=== PATIENT | female | born 1995 | race Caucasian/White ===

== ENCOUNTER 2020-05-02 14:47 | Emergency (ER) | payer OTHER, SELFPAY ==
[2020-05-02 15:42] VITALS: BP 137/87; PULSE 90; RESP 18; TEMP 36.6; O2SAT 97; BMI 25.6
[2020-05-02 16:46] VITALS: BP 135/93; PULSE 62; RESP 15; TEMP 36.6; O2SAT 96
[2020-05-02] MEDS: 0.9 % Sodium Chloride 1,000 ML 999 ML IVCONT (17:02)
--- NOTE | 2020-05-02 17:03 | ED_ITS ---
HPI - Nausea/Vomiting/Diarrhea General Chief complaint: Nausea/Vomiting/Diarrhea <TAYLOR Shipman Last Filed: 05/02/20 17:48> Stated complaint: nausea, vomiting, unable to eat <TAYLOR Shipman Last Filed: 05/02/20 17:48> Time Seen by Provider: 05/02/20 16:37 <TAYLOR Shipman Last Filed: 05/02/20 17:48> Source: patient <TAYLOR Shipman Last Filed: 05/02/20 17:48> Mode of arrival: ambulatory <TAYLOR Shipman Last Filed: 05/02/20 17:48> Limitations: no limitations <TAYLOR Shipman Last Filed: 05/02/20 17:48> History of Present Illness HPI Narrative: 25 y/o female with history of tubal ligation, UTI presents with 3 days of nausea and vomiting. She last ate yesterday and has not been able to tolerate much. She denies sick contacts, recent travel or recent antibiotcs. She has no abdominal pain, fever, chills. She has a history of similar presentation in the past when she had UTI. <TAYLOR Shipman Last Filed: 05/02/20 17:48> MD elicited complaint: nausea and vomiting <TAYLOR Shipman Last Filed: 05/02/20 17:48> Related Data Home medications: Previous Rx's Medication Instructions Recorded diphenhydramine HCl [Benadryl] 25 mg PO Q6H PRN #10 cap 05/02/20 metoclopramide HCl [Reglan] 10 mg PO Q6H PRN #10 tab 05/02/20 ondansetron 4 mg PO Q6-8H PRN #14 tab 05/02/20 <TAYLOR Shipman Last Filed: 05/02/20 17:48> Allergies/Adverse reactions: Allergies Allergy/AdvReac Type Severity Reaction Status Date / Time No Known Allergies Allergy Verified 05/02/20 15:45 <TAYLOR Shipman Last Filed: 05/02/20 17:48> Review of Systems Review of Systems: Constitutional: No Fever, No Chills ENT/Mouth: No sore throat, No Rhinorrhea Eyes: No Eye Pain, No Swelling, No Redness Cardiovascular: No Chest Pain, No SOB Respiratory: No Cough, No Sputu Gastrointestinal: + Nausea, + Vomiting, + Diarrhea (2x), No abdominal Pain, No Hematochezia, No Melena Genitourinary: No Dysuria, No Urinary Frequency, No Hematuria Musculoskeletal: No joint pain, No Myalgias Skin: No Skin Lesions, No rash Neuro: + Weakness, No Numbness, No Dizziness, No Headache Psych: No Anxiety/Panic, No Depression Heme/Lymph: No Bruising, No Lymphadenopathy <TAYLOR Shipman - Last Filed: 05/02/20 17:48> [facility] Past Medical History Attestation statement: The following information was validated with the patient. <TAYLOR Shipman - Last Filed: 05/02/20 17:48> Social History Social History: Social History Smoking Status: Never smoker Use of substances other than those prescribed or required for medical reasons: No Advance Directives: No Advance Directives Information Provided: Yes <TAYLOR Shipman - Last Filed: 05/02/20 17:48> Physical Exam Vital Signs: Vital Signs: Last Vital Signs Temp 97.8 F 05/02/20 16:46 Pulse 54 05/02/20 18:00 Resp 15 05/02/20 18:00 BP 143/93 H 05/02/20 18:00 Pulse Ox 98 05/02/20 18:00 Body Mass Index 25.6 Appearance: Alert. Oriented X3. No acute distress. Eyes: Pupils equal, round and reactive to light. ENT: Pharynx normal. Neck: Normal inspection. Neck supple. CVS: Normal heart rate and rhythm. Pulses normal. Respiratory: No respiratory distress. Breath sounds normal. Abdomen: Soft and nontender. +BS x4 Skin: Skin warm and dry. Normal skin color. Normal skin turgor. No rashes. Extremities: No lower extremity edema. Neuro: Oriented X 3. Slightly lethargic but arouses to answer questions appropriately. <TAYLOR Shipman - Last Filed: 05/02/20 17:48> Vital Signs: Last Vital Signs Temp 97.8 F 05/02/20 16:46 Pulse 54 05/02/20 18:00 Resp 15 05/02/20 18:00 BP 143/93 H 05/02/20 18:00 Pulse Ox 98 05/02/20 18:00 Body Mass Index 25.6 <Lynette Carr NP - Last Filed: 05/02/20 19:07> Course Course Course Narrative: 25 y/o female with 3 days of N/V. No abdominal pain. Denies chance of given tubal ligation history. Will check labs and hydrate. Zofran given. No vomiting since this morning. <TAYLOR Shipman - Last Filed: 05/02/20 17:48> Patient re-evaluated, states that nausea is minimal. Would like to be discharged home with some Reglan as Zofran is not very effective for her. Reglan and Benadryl scripts sent electronically. Patient verbalized understanding of and agrees to plan of care to discharge home. <Lynette Carr NP - Last Filed: 05/02/20 19:07> MDM - Nausea/Vomiting/Diarrhea Differential Diagnosis Differential diagnosis: Likely traveler's diarrhea, food poisoning, gastroenteritis, drug-induced nausea and vomiting and dehydration <TAYLOR Shipman - Last Filed: 05/02/20 17:48> Medical Records Attestation: I reviewed the patient's medical records. <TAYLOR Shipman - Last Filed: 05/02/20 17:48> Lab Data Attestation: I reviewed the patient's lab results. <TAYLOR Shipman - Last Filed: 05/02/20 17:48> Result diagrams: : 05/02/20 16:59 05/02/20 16:59 <TAYLOR Shipman - Last Filed: 05/02/20 17:48> Labs: Lab Results 05/02/20 05/02/20 05/02/20 Range/Units 16:59 16:59 18:03 WBC 6.1 (4.8-10.8) X10*3/uL RBC 4.69 (4.20-5.50) X10*6/uL Hgb 13.5 (12.0-16.0) g/dl Hct 40.8 (37-47) % MCV 87.0 (80-98) fL MCH 28.8 (27.0-33.0) pg MCHC 33.1 (31.0-35.0) g/dl RDW 13.7 (11.0-16.0) % Plt Count 327 (160-400) X10*3/uL MPV 8.7 L (9.4-12.3) fL Immature Gran % (Auto) 0.2 (0.0-0.4) % Neut % (Auto) 67.0 (45-73) % Lymph % (Auto) 25.8 (20-40) % [place] % (Auto) 6.3 (2-11) % Eos % (Auto) 0.5 (0-4) % Baso % (Auto) 0.2 (0-2) % Lymph # (Auto) 1.6 (1.2-4.9) X10*3/uL [place] # (Auto) 0.4 (0.1-1.2) X10*3/uL Eos # (Auto) 0.0 (0.0-0.4) X10*3/uL Baso # (Auto) 0.0 (0.0-0.2) X10*3/uL Abs Immat Gran (auto) 0.01 (0.00-0.03) X10*3/uL Absolute Neuts (auto) 4.1 (2.0-8.3) X10*3/uL Absolute Nucleated RBC 0.000 (0.0-0.012) X10*3/uL Nucleated RBC % (auto) 0.0 (0.0-0.2) /100WBC Sodium 143 (135-145) mmol/L Potassium 3.1 L (3.3-5.1) mmol/l Chloride 99 (96-108) mmol/L Carbon Dioxide 33 H (22-29) mmol/L Anion Gap 14 (12-20) BUN 4 L (9-16) mg/dL Creatinine 0.56 (0.5-1.4) mg/dL Estim Creat Clear Calc 135.6 Estimated GFR > 60 Random Glucose 100 (60-115) mg/dL Calcium 9.3 (8.4-10.2) mg/dL Magnesium 2.1 (1.6-2.6) mg/dL Total Bilirubin 0.5 (0.0-1.0) mg/dL Direct Bilirubin 0.2 (0.0-0.5) mg/dL AST 21 (5-31) U/L ALT 15 (0-31) U/L Alkaline Phosphatase 63 (39-117) U/L Total Protein 7.0 (6.5-8.0) g/dL Albumin 4.1 (3.5-5.0) g/dL Beta HCG, Quant < 2 mIU/mL Urine Color STRAW Urine Appearance CLEAR Urine pH 8.0 (5.0-8.0) Ur Specific [place] 1.010 (1.005-1.025) Urine Protein NEG (NEG-TRACE) MG/DL Urine Glucose (UA) NEG (NEG) MG/DL Urine Ketones NEG (NEG) MG/DL Urine Blood NEG (NEG) Urine Nitrite NEG (NEG) Ur Leukocyte Esterase NEG (NEG) Urine Test NEGATIVE (NEGATIVE) <TAYLOR Shipman - Last Filed: 05/02/20 17:48> Lab Results 05/02/20 05/02/20 05/02/20 Range/Units 16:59 16:59 18:03 WBC 6.1 (4.8-10.8) X10*3/uL RBC 4.69 (4.20-5.50) X10*6/uL Hgb 13.5 (12.0-16.0) g/dl Hct 40.8 (37-47) % MCV 87.0 (80-98) fL MCH 28.8 (27.0-33.0) pg MCHC 33.1 (31.0-35.0) g/dl RDW 13.7 (11.0-16.0) % Plt Count 327 (160-400) X10*3/uL MPV 8.7 L (9.4-12.3) fL Immature Gran % (Auto) 0.2 (0.0-0.4) % Neut % (Auto) 67.0 (45-73) % Lymph % (Auto) 25.8 (20-40) % [place] % (Auto) 6.3 (2-11) % Eos % (Auto) 0.5 (0-4) % Baso % (Auto) 0.2 (0-2) % Lymph # (Auto) 1.6 (1.2-4.9) X10*3/uL [place] # (Auto) 0.4 (0.1-1.2) X10*3/uL Eos # (Auto) 0.0 (0.0-0.4) X10*3/uL Baso # (Auto) 0.0 (0.0-0.2) X10*3/uL Abs Immat Gran (auto) 0.01 (0.00-0.03) X10*3/uL Absolute Neuts (auto) 4.1 (2.0-8.3) X10*3/uL Absolute Nucleated RBC 0.000 (0.0-0.012) X10*3/uL Nucleated RBC % (auto) 0.0 (0.0-0.2) /100WBC Sodium 143 (135-145) mmol/L Potassium 3.1 L (3.3-5.1) mmol/l Chloride 99 (96-108) mmol/L Carbon Dioxide 33 H (22-29) mmol/L Anion Gap 14 (12-20) BUN 4 L (9-16) mg/dL Creatinine 0.56 (0.5-1.4) mg/dL Estim Creat Clear Calc 135.6 Estimated GFR > 60 Random Glucose 100 (60-115) mg/dL Calcium 9.3 (8.4-10.2) mg/dL Magnesium 2.1 (1.6-2.6) mg/dL Total Bilirubin 0.5 (0.0-1.0) mg/dL Direct Bilirubin 0.2 (0.0-0.5) mg/dL AST 21 (5-31) U/L ALT 15 (0-31) U/L Alkaline Phosphatase 63 (39-117) U/L Total Protein 7.0 (6.5-8.0) g/dL Albumin 4.1 (3.5-5.0) g/dL Beta HCG, Quant < 2 mIU/mL Urine Color STRAW Urine Appearance CLEAR Urine pH 8.0 (5.0-8.0) Ur Specific [place] 1.010 (1.005-1.025) Urine Protein NEG (NEG-TRACE) MG/DL Urine Glucose (UA) NEG (NEG) MG/DL Urine Ketones NEG (NEG) MG/DL Urine Blood NEG (NEG) Urine Nitrite NEG (NEG) Ur Leukocyte Esterase NEG (NEG) Urine Test NEGATIVE (NEGATIVE) <Candy Bruno, DISTRICT COURT JUDGE - Last Filed: 05/02/20 19:07> Discharge Plan Discharge Clinical Impression: Gastroenteritis, Acute hypokalemia <TAYLOR Shipman - Last Filed: 05/02/20 17:48> Patient Disposition: Home, Self-Care <TAYLOR Shipman - Last Filed: 05/02/20 17:48> Instructions: Hypokalemia (ED), Gastroenteritis (ED), Acute Nausea and Vomiting (ED) <TAYLOR Shipman - Last Filed: 05/02/20 17:48> Additional Instructions: you were evaluated for nausea and vomiting. Please take Reglan with Be nadryl as needed for nausea and vomiting. You may try also using Zofran. Please use caution taking these medications and write down what time you take them as to not overdose on any of these medications. Thank you for choosing this emergency department for evaluation. Please follow-up with primary care physician as needed. Return to the emergency department for any new, concerning, or worsening symptoms. <TAYLOR Shipman - Last Filed: 05/02/20 17:48> Prescriptions: New ondansetron 4 mg tablet,disintegrating 4 mg PO Q6-8H PRN (Reason: nausea and vomiting) Qty: 14 RF: 0 metoclopramide HCl [Reglan] 10 mg tablet 10 mg PO Q6H PRN (Reason: nausea and vomiting) Qty: 10 RF: 0 diphenhydramine HCl [Benadryl] 25 mg capsule 25 mg PO Q6H PRN (Reason: nausea and vomiting) Qty: 10 RF: 0 <TAYLOR Shipman - Last Filed: 05/02/20 17:48> Interventions: ED Discharge Assessment Last Done: 05/02/20 19:03 <TAYLOR Shipman Last Filed: 05/02/20 17:48>
[2020-05-02 17:05] LABS: MANUAL DIFF FLAG NO
[2020-05-02 17:11] LABS: Basophils Percent Auto 0.2 % (0-2); Eosinophils Percent Auto 0.5 % (0-4); Hematocrit 40.8 % (37-47); Hemoglobin 13.5 g/dl (12.0-16.0); Imm Gran Abs Auto 0.01 X10*3/uL (0.00-0.03); Imm Gran Pct Auto 0.2 % (0.0-0.4); Lymphocytes Absolute Auto 1.6 X10*3/uL (1.2-4.9); Lymphocytes Percent Auto 25.8 % (20-40); Mean Corpuscular HGB Conc 33.1 g/dl (31.0-35.0); Mean Corpuscular Hemoglobin 28.8 pg (27.0-33.0); Mean Platelet Volume 8.7 fL (9.4-12.3); Monocytes Absolute Auto 0.4 X10*3/uL (0.1-1.2); Monocytes Percent Auto 6.3 % (2-11); Neutrophils Absolute Auto 4.1 X10*3/uL (2.0-8.3); Platelet Count 327 X10*3/uL (160-400); Red Blood Count 4.69 X10*6/uL (4.20-5.50); Red Cell Distribution Width 13.7 % (11.0-16.0); White Blood Count 6.1 X10*3/uL (4.8-10.8)
[2020-05-02] MEDS: ondansetron HCL 4 MG/2 ML VIAL IVPUSH (17:12)
[2020-05-02 17:43] LABS: HCG Quantitative < 2 mIU/mL
[2020-05-02 17:46] LABS: Alanine Aminotransferase 15 U/L (0-31); Albumin Level 4.1 g/dL (3.5-5.0); Alkaline Phosphatase 63 U/L (39-117); Anion Gap 14 (12-20); Aspartate Amino Transferase 21 U/L (5-31); Bilirubin Direct 0.2 mg/dL (0.0-0.5); Bilirubin Total 0.5 mg/dL (0.0-1.0); Blood Urea Nitrogen 4 mg/dL (9-16); Calcium 9.3 mg/dL (8.4-10.2); Carbon Dioxide 33 mmol/L (22-29); Chloride 99 mmol/L (96-108); Creatinine Clr Calc Pharmacy 135.6; Estimated Glomerular Filt Rate > 60; Glucose Random 100 mg/dL (60-115); Magnesium 2.1 mg/dL (1.6-2.6); Potassium 3.1 mmol/l (3.3-5.1); Sodium 143 mmol/L (135-145)
[2020-05-02 18:00] VITALS: BP 143/93; PULSE 54; RESP 15; O2SAT 98
[2020-05-02] MEDS: Potassium Chloride ER 20 MEQ TAB.ER.PRT 60 MEQ PO (18:00)
[2020-05-02 18:17] LABS: Glucose Urine UA NEG (NEG); Leukocyte Esterase Urine NEG (NEG); Nitrite Urine NEG (NEG); Urine Blood NEG (NEG); Urine Ketones NEG (NEG); Urine Protein NEG (NEG-TRACE)
[2020-05-02 18:21] LABS: UPreg QC Valid YES; Urine Pregnancy NEGATIVE (NEGATIVE)
[2020-05-02 18:23] LABS: Appearance Urine CLEAR; Color Urine STRAW
== END 2020-05-02 19:10 | disposition home or self-care (01) ==
PROVIDERS: Physician Assistant; Emergency Provider Emergency Medicine
DX: K52.9 Noninfective gastroenteritis and colitis, unspecified (principal); E87.6 Hypokalemia; R11.2 Nausea with vomiting, unspecified; Z79.899 Other long term (current) drug therapy
CPT/HCPCS: 36415; 80048; 80076; 81003; 81025; 83735; 84702; 85025; 96361; 96374; 99284; J2405

== ENCOUNTER 2020-08-10 09:57 | Emergency (ER) | payer OTHER, SELFPAY ==
[2020-08-10 10:15] VITALS: BP 119/63; PULSE 62; RESP 18; TEMP 36.7; O2SAT 100; BMI 52.4
[2020-08-10] MEDS: Lidocaine HCl 1 % MPF 5 ML VIAL SUBCUT (11:11)
--- NOTE | 2020-08-10 11:34 | ED.DENTAL ---
HPI - Dental/Oral General Chief complaint: Dental/Oral Stated complaint: Dental Pain Time Seen by Provider: 08/10/20 11:08 Source: patient Mode of arrival: ambulatory Limitations: no limitations History of Present Illness HPI Narrative: Left-sided upper dental pain with left-sided cheek swelling for past several days. States she had dental pain for past 5 days noticed some swelling this morning. No fever. Location: Tooth # Teeth map: 1. Onset (ago): day(s) Duration: constant Severity: moderate Relieving factors: NSAIDs Exacerbating factors: chewing Context: history of dental caries Associated symptoms: other (No tongue swelling, pain with swallowing, ear pain or sore throat.) Treatment prior to arrival: none Related Data Previous Rx's Medication Instructions Recorded diphenhydramine HCl [Benadryl] 25 mg PO Q6H PRN #10 cap 05/02/20 metoclopramide HCl [Reglan] 10 mg PO Q6H PRN #10 tab 05/02/20 ondansetron 4 mg PO Q6-8H PRN #14 tab 05/02/20 clindamycin HCl 300 mg PO Q8H 7 Days #21 cap 08/10/20 ibuprofen 800 mg PO Q8H PRN #30 tab 08/10/20 oxycodone-acetaminophen [Endocet] 1 tab PO Q8H PRN 3 Days #10 tab 08/10/20 Allergies Allergy/AdvReac Type Severity Reaction Status Date / Time No Known Allergies Allergy Verified 05/02/20 15:45 Review of Systems Review of Systems: Constitutional: No Weight loss, No Fever, No Chills, No Night Sweats, No Fatigue, No Malaise ENT/Mouth: Dental pain as noted per HPI, No Hearing loss, No Ear Pain, No Nasal Congestion, No Sinus Pain, No Hoarseness, No sore throat, No Rhinorrhea, No Swallowing Difficulty Eyes: No Eye Pain, No Swelling, No Redness, No Foreign Body, No Discharge, No Vision Changes Cardiovascular: No Chest Pain, No SOB, No Dyspnea on Exertion, No Orthopnea, No Edema, No Palpitations Respiratory: No Cough, No Sputum, No Wheezing, No Smoke Exposure, No Dyspnea Gastrointestinal: Negative Genitourinary: Negative Musculoskeletal: Negative Skin: No Skin Lesions, No rash Neuro: No Weakness, No Numbness, No Paresthesias, No Loss of Consciousness, No Dizziness, No Headache Psych: Negative Heme/Lymph: Negative Endocrine: Negative Yes all other systems are reviewed and are negative [facility] Past Medical History Medical History (Updated 08/10/20 @ 11:40 by Chaz Abdalla NP) No known health problems Social History Social History Smoking Status: Never smoker Advance Directives: No Advance Directives Information Provided: No Physical Exam Vital Signs: Vital Signs: Last Vital Signs Temp 98.0 F 08/10/20 10:15 Pulse 62 08/10/20 10:15 Resp 18 08/10/20 10:15 BP 119/63 08/10/20 10:15 Pulse Ox 100 08/10/20 10:15 Body Mass Index 52.4 Reviewed Const: General: cooperative and healthy appearing; No acute distress or intoxicated appearing Nutritional Appearance: average body habitus Orientation/consciousness: patient oriented x3 HENMT: Head: Yes normal to inspection Ears: hearing grossly normal bilaterally Teeth image: 1. Slight swelling just distal to the base of the incisor (11). There is some cheek swelling on the side. Eyes: General: appearance normal, both eyes and all related structures Visual Messer: normal visual messer by confrontation Neck: Neck: Yes normal visual inspection, No positive Brudzinski's sign, No positive Kernig's sign and No tender Thyroid: Thyroid normal Chest: Chest palpation & inspection: normal inspection of the chest Resp: Effort & Inspection: normal respiratory effort Cardio: Jugular venous distension: no JVD Skin: General skin exam: no rashes or lesions noted Neuro: General: patient oriented x3 Extrem: General: Yes normal to inspection Course Course Course Narrative: AP of 25-year-old otherwise healthy with with left upper dental pain with swelling exam consistent with small dental abscess which was drained using local anesthetic. Patient will be discharged home with antibiotics and close follow-up. Comfortable plan stable for discharge. Procedures Abscess I/D Site: oral (Dental) Side (if applicable): left Local Anesthetic: lidocaine 1% Amount of anesthesia used (mL): 2 Technique: needle aspiration Amount of fluid expressed (mL): 1 Packing used?: none Complications: other (Very small amount of purulent discharge. No longer indurated. Tolerated very well.) Discharge Plan Discharge Clinical Impression: Dental abscess Patient Disposition: Home, Self-Care Instructions: Dental Abscess (ED) Additional Instructions: Push fluids Soft diet for next 24 hours Rinse her mouth after after eating. Take medications as prescribed For [id number] pain take the ibuprofen For severe pain take oxycodone; do not drink alcohol or drive or operate any heavy machinery while taking this medication. Follow-up with dentist in the next 2-3 days Return if any concerns or worsening symptoms Thank you Prescriptions: New clindamycin HCl 300 mg capsule 300 mg PO Q8H 7 Days Qty: 21 RF: 0 ibuprofen 800 mg tablet 800 mg PO Q8H PRN (Reason: pain) Qty: 30 RF: 0 oxycodone-acetaminophen [Endocet] 5-325 mg tablet 1 tab PO Q8H PRN (Reason: pain) 3 Days Qty: 10 RF: 0 No Action ondansetron 4 mg tablet,disintegrating 4 mg PO Q6-8H PRN (Reason: nausea and vomiting) Qty: 14 RF: 0 metoclopramide HCl [Reglan] 10 mg tablet 10 mg PO Q6H PRN (Reason: nausea and vomiting) Qty: 10 RF: 0 diphenhydramine HCl [Benadryl] 25 mg capsule 25 mg PO Q6H PRN (Reason: nausea and vomiting) Qty: 10 RF: 0 Referrals: Physician,None [Primary Care Provider] - 2 days (Your dentist)
== END 2020-08-10 11:52 | disposition home or self-care (01) ==
PROVIDERS: Emergency Provider Emergency Medicine
DX: K12.2 Cellulitis and abscess of mouth (principal)
CPT/HCPCS: 40800; 99283; 99284

== ENCOUNTER 2022-04-22 17:25 | Emergency (ER) | payer OTHER, SELFPAY ==
--- NOTE | ~2022-04-22 | CT_ITS ---
EXAMINATION: CT ABDOMEN AND PELVIS WITH CONTRAST CLINICAL INFORMATION: Intra-abdominal stranding on CT without COMPARISON: Noncontrast CT 04/22/2022 TECHNIQUE: Multidetector volumetric images were obtained from the superior aspect of the liver through the pubic symphysis following administration 85 mL of Omnipaque 350 intravenous contrast. Sagittal and coronal reformatted images were obtained on the technologist's workstation. Oral contrast: No This CT examination was performed using dose optimization techniques as appropriate, variously including the following: *Automated exposure control *Adjustment of mA and/or kV according to patient size (this includes techniques or standardized protocols for targeted exams where dose is matched to indication/reason for exam; i.e. extremities or head) *Use of iterative reconstruction technique DLP: 632 mGy-cm FINDINGS: LUNG BASES: The visualized lung bases are unremarkable. LIVER, GALLBLADDER, AND BILIARY TREE: The liver is normal in size, shape, and attenuation. No focal hepatic lesion or biliary ductal dilatation is present. The gallbladder is unremarkable with no evidence of radiopaque gallstones, gallbladder wall thickening, or obvious pericholecystic inflammatory changes. PANCREAS: Unremarkable. SPLEEN: Unremarkable. ADRENAL GLANDS: Unremarkable. KIDNEYS AND URETERS: Bilateral nephrograms are symmetric. No hydronephrosis or obstructing calculi bilaterally. There is subtle mural enhancement of the right ureter. BLADDER: Nearly empty and not adequately evaluated. GASTROINTESTINAL TRACT: No evidence of bowel obstruction or significant wall thickening. The appendix is unremarkable. No free fluid or free air is seen. ABDOMINAL WALL: No significant hernia is appreciated. LYMPH NODES: Normal. VASCULAR: Unremarkable. PELVIC VISCERA: Unremarkable. OSSEOUS STRUCTURES: Unremarkable. CT/CT abdomen pelvis w IV con IMPRESSION: Subtle mural enhancement of the right ureter, which could reflect sequelae of ascending infection. No specific renal parenchymal findings of pyelonephritis. No hydronephrosis or obstructing calculus.
--- NOTE | ~2022-04-22 | CT_ITS ---
EXAMINATION: CT ABDOMEN AND PELVIS WITHOUT CONTRAST CLINICAL INFORMATION: Flank pain, question pyelonephritis COMPARISON: None TECHNIQUE: Multidetector volumetric imaging was performed from the superior aspect of the liver through the pubic symphysis. Sagittal and coronal reformatted images were obtained on the technologist's workstation. This CT examination was performed using dose optimization techniques as appropriate, variously including the following: *Automated exposure control *Adjustment of mA and/or kV according to patient size (this includes techniques or standardized protocols for targeted exams where dose is matched to indication/reason for exam; i.e. extremities or head) *Use of iterative reconstruction technique DLP: 662 mGy-cm FINDINGS: LUNG BASES: The visualized lung bases are unremarkable. LIVER, GALLBLADDER, AND BILIARY TREE: The liver is normal in size, shape, and attenuation. No focal hepatic lesion or biliary ductal dilatation is identified. The gallbladder is unremarkable with no evidence of radiopaque gallstones, gallbladder wall thickening, or obvious pericholecystic inflammatory changes. PANCREAS: Unremarkable. SPLEEN: Unremarkable. ADRENAL GLANDS: Unremarkable. KIDNEYS AND URETERS: No hydronephrosis or obstructing calculus bilaterally. There is subtle right-sided perinephric stranding. Inadequate assessment possible the renal parenchyma for pyelonephritis without intravenous contrast. BLADDER: Minimally distended and not adequately evaluated. GASTROINTESTINAL TRACT: No evidence of bowel obstruction or significant wall thickening. Appendix appears collapsed. No free fluid or free air is seen. ABDOMINAL WALL: No significant hernia is appreciated. LYMPH NODES: No lymphadenopathy is seen, though assessment is limited in the absence of intravenous contrast. VASCULAR: Unremarkable. PELVIC VISCERA: Unremarkable. OSSEOUS STRUCTURES: Unremarkable. CT/CT abdomen pelvis wo IV con IMPRESSION: Limited evaluation for pyelonephritis without intravenous contrast. Subtle right-sided perinephric stranding, which could reflect sequelae of ascending infection in the proper clinical setting. No hydronephrosis or obstructing calculus bilaterally.
[2022-04-22 17:29] VITALS: BP 119/79; PULSE 91; RESP 18; TEMP 36.8; O2SAT 97; BMI 34.7
[2022-04-22 18:25] LABS: MANUAL DIFF FLAG NO
[2022-04-22 18:26] LABS: Basophils Percent Auto 0.2 % (0-2); Eosinophils Absolute Auto 0.2 X10*3/uL (0.0-0.4); Eosinophils Percent Auto 1.6 % (0-4); Hemoglobin 13.3 g/dl (12.0-16.0); Imm Gran Abs Auto 0.04 X10*3/uL (0.00-0.03); Imm Gran Pct Auto 0.4 % (0.0-0.4); Lymphocytes Absolute Auto 2.6 X10*3/uL (1.2-4.9); Lymphocytes Percent Auto 26.7 % (20-40); Mean Corpuscular HGB Conc 33.3 g/dl (31.0-35.0); Mean Corpuscular Hemoglobin 28.4 pg (27.0-33.0); Mean Corpuscular Volume 85.5 fL (80.0-98.0); Mean Platelet Volume 9.1 fL (9.4-12.3); Monocytes Percent Auto 10.4 % (2-11); Neutrophils Percent Auto 60.7 % (45-73); Platelet Count 319 X10*3/uL (160-400); Red Blood Count 4.68 X10*6/uL (4.20-5.50); Red Cell Distribution Width 13.1 % (11.0-16.0); White Blood Count 9.9 X10*3/uL (4.8-10.8)
[2022-04-22 18:27] LABS: Appearance Urine Turbid; Color Urine Yellow; Glucose Urine UA Negative (Negative); Leukocyte Esterase Urine Large (3+) (Negative); Nitrite Urine Negative (Negative); UMIC TRIGGER UACC YES; Urine Blood Moderate (2+) (Negative); Urine Ketones Negative (Negative); Urine Protein 30 (1+) mg/dL (Neg-Trace)
[2022-04-22 18:28] LABS: UPreg QC Valid YES; Urine Pregnancy NEGATIVE (NEGATIVE)
[2022-04-22 18:36] LABS: Bacteria Urine 1+ (None Seen); Hyaline Casts Urine 0-2 /LPF (0-2); Squamous Epithelial Cell Urine 0-2 /HPF (0-2); UACC Culture Trigger YES; WBC Urine >50 /HPF (0-5)
[2022-04-22 18:47] LABS: Alanine Aminotransferase 94 U/L (0-31); Alkaline Phosphatase 96 U/L (39-117); Anion Gap 15 (12-20); Aspartate Amino Transferase 53 U/L (5-31); Bilirubin Direct 0.3 mg/dL (0.0-0.5); Bilirubin Total 0.5 mg/dL (0.0-1.0); Blood Urea Nitrogen 5 mg/dL (9-16); Calcium 9.7 mg/dL (8.4-10.2); Carbon Dioxide 34 mmol/L (22-29); Chloride 96 mmol/L (96-108); Creatinine Clr Calc Pharmacy 129.6; Estimated Glomerular Filt Rate > 60; Glucose Random 102 mg/dL (60-115); Lipase 15 U/L (8-78); Potassium 3.9 mmol/L (3.3-5.1); Sodium 141 mmol/L (135-145); Total Protein 7.1 g/dL (6.5-8.0)
--- NOTE | 2022-04-22 21:27 | ED_ITS ---
HPI - Abdominal Pain General Chief Complaint: Abdominal Pain Stated Complaint: Flank pain/lower abdominal pain Time Seen by Provider: 04/22/22 21:26 Source: patient Mode of arrival: ambulatory Limitations: no limitations History of Present Illness HPI narrative: 27-year-old female presents with 3 days of dysuria, bladder cramping and pain, and right flank pain. She has had intermittent chills, but denies significant fever. She has been able to eat and drink without difficulty, and does not report abnormal vaginal discharge. She denies chest pain or pressure, palpitations, shortness of breath, abdominal distention, diarrhea, constipation, and fevers. MD elicited complaint: abdominal pain and flank pain Onset (ago): day(s) (3) Pain Consistency: constant Location: R flank and suprapubic Severity: moderate Pain scale (0-10): 7 Quality: cramping, aching and sharp Radiation: suprapubic and R flank Migration to: no migration Exacerbating factors: movement Relieving factors: nothing Associated symptoms: chills and dysuria Related Data Date of Last Menstrual Period: 04/16/22 Patient : No Previous Rx's Medication Instructions Recorded diphenhydramine HCl 25 mg capsule 25 mg PO Q6H PRN nausea and 05/02/20 (Benadryl) vomiting #10 caps metoclopramide HCl 10 mg tablet 10 mg PO Q6H PRN nausea and 05/02/20 (Reglan) vomiting #10 tabs ondansetron 4 mg disintegrating 4 mg PO Q6-8H PRN nausea and 05/02/20 tablet vomiting #14 tabs clindamycin HCl 300 mg capsule 300 mg PO Q8H 7 days #21 caps 08/10/20 ibuprofen 800 mg tablet 800 mg PO Q8H PRN pain #30 tabs 08/10/20 oxycodone-acetaminophen 5 mg-325 1 tab PO Q8H PRN pain 3 days #10 08/10/20 mg tablet (Endocet) tabs cefuroxime axetil 500 mg tablet 500 mg PO Q12H 7 days #14 tabs 04/23/22 Allergies Allergy/AdvReac Type Severity Reaction Status Date / Time No Known Allergies Allergy Verified 05/02/20 15:45 Review of Systems Review of Systems Constitutional: No Fever, No Chills ENT/Mouth: No sore throat Eyes: No Eye Pain, No Swelling, No Redness Cardiovascular: No Chest Pain, No SOB Respiratory: No Cough, No Sputum, No Wheezing Gastrointestinal: positive Nausea, no Vomiting, No Diarrhea, positive abdominal pain Genitourinary: positive Dysuria, no urinary frequency, no Hematuria, positive Flank Pain, no hesitancy Musculoskeletal: No joint pain, No Myalgias Skin: No Skin Lesions, No rash Neuro: No Weakness, No Numbness, No Headache Psych: No Anxiety/Panic, No Depression Heme/Lymph: No Bruising, No Lymphadenopathy Endocrine: No Polyuria, No Polydipsia Yes all other systems are reviewed and are negative [facility] Past Medical History Attestation statement: The following information was validated with the patient. Source: old records reviewed Medical History No known health problems Date of Last Menstrual Period: 04/16/22 Social History Social History Smoked in Last 30 Days: Yes Use of substances other than those prescribed or required for medical reasons: No Advance Directives: No Advance Directives Information Provided: No Patient : No Physical Exam ED Vital Signs: Vital Signs - 24 hr 04/22/22 17:29 04/22/22 21:41 Temperature 98.3 F 98.8 F Pulse Rate 91 84 Respiratory Rate 18 14 Blood Pressure 119/79 119/87 Pulse Oximetry 97 97 Oxygen Delivery Method Room Air Room Air BMI result Body Mass Index 34.7 Appearance: Alert. Oriented X3. Moderate distress. Eyes: Pupils equal, round and reactive to light. Sclera nonicteric. ENT: Pharynx normal. Neck: Normal inspection. Neck supple. CVS: Normal heart rate and rhythm. Pulses normal. Respiratory: No respiratory distress. Breath sounds normal. Abdomen: Soft and right lower quadrant and suprapubic tenderness. Positive CVA tenderness to the right side. Skin: Skin warm and dry. Normal skin color. Normal skin turgor. Extremities: No lower extremity edema. Gait well-balanced well coordinated. Neuro: No motor deficit. No sensory deficit. Cranial nerves 2-12 intact Course Course Course Narrative: 27-year-old female presents for evaluation of bladder cramping and pain, right flank pain for 3 days, and dysuria. Labs drawn while patient was in the emergency department waiting room, urinalysis indicates UTI with white cell clumps. Physical exam is positive for CVA tenderness on the right side, right l ower quadrant and suprapubic pain on abdominal palpation. Will order CT scan abdomen pelvis to rule out pyelo, and acute abdomen. Will give pain management, Zofran, a L of fluid and ceftriaxone. CT scan negative, requesting CT scan with contrast for some minor stranding. 01:45 CT scan of abdomen pelvis with contrast negative for acute abdomen. Does have some stranding around the right ureter could possibly could be consistent with UTI. White count is 9.9, patient is not septic as she is afebrile, with hemodynamically stable vital signs. Will treat with cefuroxime 500 mg for 7 days, encourage fluids, and have patient follow-up with primary care physician as needed. Patient verbalized understanding of and agrees to plan of care discharge home. Verbalized understanding of signs symptoms indicating need for emergent intervention. MDM - Abdominal Pain Differential Diagnosis Differential diagnosis: Likely abdominal pain, acute appendicitis, calculus of kidney and renal colic Medical Records Attestation: I reviewed the patient's medical records. Lab Data Attestation: I reviewed the patient's lab results. Result diagrams: 04/22/22 18:18 04/22/22 18:18 Labs: Lab Results 04/22/22 04/22/22 04/22/22 Range/Units 18:18 18:18 18:18 WBC 9.9 (4.8-10.8) X10*3/uL RBC 4.68 (4.20-5.50) X10*6/uL Hgb 13.3 (12.0-16.0) g/dl Hct 40.0 (37.0-47.0) % MCV 85.5 (80.0-98.0) fL MCH 28.4 (27.0-33.0) pg MCHC 33.3 (31.0-35.0) g/dl RDW 13.1 (11.0-16.0) % Plt Count 319 (160-400) X10*3/uL MPV 9.1 L (9.4-12.3) fL Immature Gran % (Auto) 0.4 (0.0-0.4) % Neut % (Auto) 60.7 (45-73) % Lymph % (Auto) 26.7 (20-40) % [place] % (Auto) 10.4 (2-11) % Eos % (Auto) 1.6 (0-4) % Baso % (Auto) 0.2 (0-2) % Lymph # (Auto) 2.6 (1.2-4.9) X10*3/uL [place] # (Auto) 1.0 (0.1-1.2) X10*3/uL Eos # (Auto) 0.2 (0.0-0.4) X10*3/uL Baso # (Auto) 0.0 (0.0-0.2) X10*3/uL Abs Immat Gran (auto) 0.04 H (0.00-0.03) X10*3/uL Absolute Neuts (auto) 6.0 (2.0-8.3) x10*3/uL Absolute Nucleated RBC 0.000 (0.0-0.012) X10*3/uL Nucleated RBC % (auto) 0.0 (0.0-0.2) /100WBC Sodium 141 (135-145) mmol/L Potassium 3.9 (3.3-5.1) mmol/L Chloride 96 (96-108) mmol/L Carbon Dioxide 34 H (22-29) mmol/L Anion Gap 15 (12-20) BUN 5 L (9-16) mg/dL Creatinine 0.67 (0.5-1.4) mg/dL Estim Creat Clear Calc 129.6 Estimated GFR > 60 Random Glucose 102 (60-115) mg/dL Lactic Acid (0.5-2.0) mmol/L Calcium 9.7 (8.4-10.2) mg/dL Total Bilirubin 0.5 (0.0-1.0) mg/dL Direct Bilirubin 0.3 (0.0-0.5) mg/dL AST 53 H (5-31) U/L ALT 94 H (0-31) U/L Alkaline Phosphatase 96 D (39-117) U/L Total Protein 7.1 (6.5-8.0) g/dL Albumin 4.0 (3.5-5.0) g/dL Lipase 15 (8-78) U/L Urine Color Yellow Urine Appearance Turbid Urine pH 7.0 (5.0-9.0) Ur Specific Wever 1.010 (1.005-1.025) Urine Protein 30 (1+) H (Neg-Trace) mg/dL Urine Glucose (UA) Negative (Negative) mg/dL Urine Ketones Negative (Negative) mg/dL Urine Blood Moderate (2+) H (Negative) Urine Nitrite Negative (Negative) Ur Leukocyte Esterase Large (3+) H (Negative) Urine RBC 3-5 H (0-2) /HPF Urine WBC >50 H (0-5) /HPF Ur Squamous Epith Cells 0-2 (0-2) /HPF Urine Bacteria 1+ (None Seen) Hyaline Casts 0-2 (0-2) /LPF Urine Test (NEGATIVE) 04/22/22 04/22/22 Range/Units 18:18 22:02 WBC (4.8-10.8) X10*3/uL RBC (4.20-5.50) X10*6/uL Hgb (12.0-16.0) g/dl Hct (37.0-47.0) % MCV (80.0-98.0) fL MCH (27.0-33.0) pg MCHC (31.0-35.0) g/dl RDW (11.0-16.0) % Plt Count (160-400) X10*3/uL MPV (9.4-12.3) fL Immature Gran % (Auto) (0.0-0.4) % Neut % (Auto) (45-73) % Lymph % (Auto) (20-40) % [place] % (Auto) (2-11) % Eos % (Auto) (0-4) % Baso % (Auto) (0-2) % Lymph # (Auto) (1.2-4.9) X10*3/uL [place] # (Auto) (0.1-1.2) X10*3/uL Eos # (Auto) (0.0-0.4) X10*3/uL Baso # (Auto) (0.0-0.2) X10*3/uL Abs Immat Gran (auto) (0.00-0.03) X10*3/uL Absolute Neuts (auto) (2.0-8.3) x10*3/uL Absolute Nucleated RBC (0.0-0.012) X10*3/uL Nucleated RBC % (auto) (0.0-0.2) /100WBC Sodium (135-145) mmol/L Potassium (3.3-5.1) mmol/L Chloride (96-108) mmol/L Carbon Dioxide (22-29) mmol/L Anion Gap (12-20) BUN (9-16) mg/dL Creatinine (0.5-1.4) mg/dL Estim Creat Clear Calc Estimated GFR Random Glucose (60-115) mg/dL Lactic Acid 1.5 (0.5-2.0) mmol/L Calcium (8.4-10.2) mg/dL Total Bilirubin (0.0-1.0) mg/dL Direct Bilirubin (0.0-0.5) mg/dL AST (5-31) U/L ALT (0-31) U/L Alkaline Phosphatase (39-117) U/L Total Protein (6.5-8.0) g/dL Albumin (3.5-5.0) g/dL Lipase (8-78) U/L Urine Color Urine Appearance Urine pH (5.0-9.0) Ur Specific Wever (1.005-1.025) Urine Protein (Neg-Trace) mg/dL Urine Glucose (UA) (Negative) mg/dL Urine Ketones (Negative) mg/dL Urine Blood (Negative) Urine Nitrite (Negative) Ur Leukocyte Esterase (Negative) Urine RBC (0-2) /HPF Urine WBC (0-5) /HPF Ur Squamous Epith Cells (0-2) /HPF Urine Bacteria (None Seen) Hyaline Casts (0-2) /LPF Urine Test NEGATIVE (NEGATIVE) Imaging Data CT abdomen and pelvis with and without contrast: Attestation: I personally reviewed and interpreted this imaging study as follows: Radiologist's impression: FINDINGS: LUNG BASES: The visualized lung bases are unremarkable.? LIVER, GALLBLADDER, AND BILIARY TREE: The liver is normal in size, shape, and attenuation. No focal hepatic lesion or biliary ductal dilatation is identified. The gallbladder is unremarkable with no evidence of radiopaque gallstones, gallbladder wall thickening, or obvious pericholecystic inflammatory changes.? PANCREAS: Unremarkable.? SPLEEN: Unremarkable.? ADRENAL GLANDS: Unremarkable.? KIDNEYS AND URETERS: No hydronephrosis or obstructing calculus bilaterally. There is subtle right-sided perinephric stranding. Inadequate assessment possible the renal parenchyma for pyelonephritis without intravenous contrast.? BLADDER: Minimally distended and not adequately evaluated.? GASTROINTESTINAL TRACT: No evidence of bowel obstruction or significant wall thickening. Appendix appears collapsed. No free fluid or free air is seen.? ABDOMINAL WALL: No significant hernia is appreciated.? LYMPH NODES: No lymphadenopathy is seen, though assessment is limited in the absence of intravenous contrast. VASCULAR: Unremarkable. PELVIC VISCERA: Unremarkable.? OSSEOUS STRUCTURES: Unremarkable.? CT/CT abdomen pelvis wo IV con IMPRESSION: Limited evaluation for pyelonephritis without intravenous contrast. Subtle right-sided perinephric stranding, which could reflect sequelae of ascending infection in the proper clinical setting. No hydronephrosis or obstructing calculus bilaterally. FINDINGS: LUNG BASES: The visualized lung bases are unremarkable.? LIVER, GALLBLADDER, AND BILIARY TREE: The liver is normal in size, shape, and attenuation. No focal hepatic lesion or biliary ductal dilatation is present. The gallbladder is unremarkable with no evidence of radiopaque gallstones, gallbladder wall thickening, or obvious pericholecystic inflammatory changes.? PANCREAS: Unremarkable.? SPLEEN: Unremarkable.? ADRENAL GLANDS: Unremarkable.? KIDNEYS AND URETERS: Bilateral nephrograms are symmetric. No hydronephrosis or obstructing calculi bilaterally. There is subtle mural enhancement of the right ureter.? BLADDER: Nearly empty and not adequately evaluated.? GASTROINTESTINAL TRACT: No evidence of bowel obstruction or significant wall thickening. The appendix is unremarkable. No free fluid or free air is seen.? ABDOMINAL WALL: No significant hernia is appreciated.? LYMPH NODES: Normal. VASCULAR: Unremarkable. PELVIC VISCERA: Unremarkable.? OSSEOUS STRUCTURES: Unremarkable.? CT/CT abdomen pelvis w IV con IMPRESSION: Subtle mural enhancement of the right ureter, which could reflect sequelae of ascending infection. No specific renal parenchymal findings of pyelonephritis. No hydronephrosis or obstructing calculus. ? ? Discharge Plan Discharge Clinical Impression: Urinary tract infection Patient Disposition: Home, Self-Care Instructions: Urinary Tract Infection in Women (ED) Additional Instructions: You were evaluated for abdominal and flank pain. Urinalysis is positive for UTI. Please take cefuroxime 500 mg twice a day for the next [address] scan of abdomen pelvis is negative for acute findings requiring emergent intervention. It does show some stranding around her right ureter, which is consistent with a significant urinary tract infection. Take Tylenol 650 mg every 6 hours and Motrin 600 mg every 6 hours as needed for pain management. Write down what time to take these medications to prevent accidental overdose. Drink plenty of fluids. Thank you for choosing this emergency department for evaluation. Please follow-up with primary care physician as needed. Return to the emergency department for any new, concerning, or worsening symptoms. Prescriptions: New cefuroxime axetil 500 mg tablet 500 mg PO Q12H 7 Days Qty: 14 0RF No Action ondansetron 4 mg tablet,disintegrating 4 mg PO Q6-8H PRN (Reason: nausea and vomiting) Qty: 14 0RF metoclopramide HCl [Reglan] 10 mg tablet 10 mg PO Q6H PRN (Reason: nausea and vomiting) Qty: 10 0RF diphenhydramine HCl [Benadryl] 25 mg capsule 25 mg PO Q6H PRN (Reason: nausea and vomiting) Qty: 10 0RF clindamycin HCl 300 mg capsule 300 mg PO Q8H 7 Days Qty: 21 0RF ibuprofen 800 mg tablet 800 mg PO Q8H PRN (Reason: pain) Qty: 30 0RF oxycodone-acetaminophen [Endocet] 5-325 mg tablet 1 tab PO Q8H PRN (Reason: pain) 3 Days Qty: 10 0RF
[2022-04-22 21:41] VITALS: BP 119/87; PULSE 84; RESP 14; TEMP 37.1; O2SAT 97
[2022-04-22] MEDS: Ketorolac Tromethamine 30 MG/ML VIAL IVPUSH (22:06)
[2022-04-22] MEDS: ondansetron HCL 4 MG/2 ML VIAL IVPUSH (22:06)
[2022-04-22] MEDS: Morphine Sulfate 4 MG/ML CARTRIDGE IVPUSH (22:06)
[2022-04-22] MEDS: cefTRIAXone sodium 1 GM in 0.9 % Sodium Chloride 50 ML IV (22:06)
[2022-04-22] MEDS: 0.9 % Sodium Chloride 1,000 ML 999 ML IVCONT (22:07)
[2022-04-22 22:35] LABS: Lactic Acid 1.5 mmol/L (0.5-2.0)
[2022-04-23] MEDS: iohexoL 350 MG/ML 100 ML INFUS..BTL 85 ML IV (01:09)
--- NOTE | 2022-04-23 02:12 | PC.NURSE ---
Discharge instructions provided to pt. Pt verbalizes understanding.
== END 2022-04-23 02:13 | disposition home or self-care (01) ==
PROVIDERS: Nurse Practitioner Family; Emergency Provider Internal Medicine
DX: N39.0 Urinary tract infection, site not specified (principal); B96.20 Unspecified Escherichia coli [E. coli] as the cause of diseases classified elsewhere
CPT/HCPCS: 36415; 74176; 74177; 80053; 81001; 81025; 82248; 83605; 83690; 85025; 87040; 87086; 87088; 87186; 96361; 96365; 96375; 99285; J0696; J1885; J2270; J2405; Q9967

== ENCOUNTER 2023-10-27 21:19 | Emergency (ER) | payer OTHER, SELFPAY ==
[2023-10-27 21:31] VITALS: BP 156/101; PULSE 113; RESP 20; TEMP 36.6; O2SAT 95; BMI 31.1
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
[2023-10-27] MEDS: Ketorolac Tromethamine 60 MG/2 ML VIAL IM (22:08)
[2023-10-27] MEDS: Bacitracin Oint 0.9 GM PACKET 3 APPL TOPICAL (22:08)
[2023-10-27] MEDS: Morphine Sulfate 4 MG/ML CARTRIDGE IM (22:09)
[2023-10-27 22:34] VITALS: BP 156/101; PULSE 113; RESP 20; TEMP 36.6; O2SAT 95
== END 2023-10-27 22:35 | disposition home or self-care (01) ==
PROVIDERS: Emergency Provider Emergency Medicine
DX: T24.202A Burn of second degree of unspecified site of left lower limb, except ankle and foot, initial encounter (principal); T31.0 Burns involving less than 10% of body surface; M79.605 Pain in left leg; X10.2XXA Contact with fats and cooking oils, initial encounter; Y93.G3 Activity, cooking and baking; Y92.9 Unspecified place or not applicable; Y99.9 Unspecified external cause status
CPT/HCPCS: 16025; 96372; 99283; 99284; J1885; J2270